=== PATIENT | female | born 1955 | race Caucasian/White ===

== ENCOUNTER 2020-03-15 10:19 | Emergency (ER) | payer MEDICARE, SELFPAY ==
--- NOTE | ~2020-03-15 | XR_ITS ---
XR chest 1V portable DATE: 03/15/2020 10:47 INDICATION: Acute chest pain, generalized. Posterior rib pain, intermittent. TECHNIQUE: Portable upright AP chest on 03/15/2020 at 1047 hours COMPARISON: 02/09/2016 2 view chest FINDINGS: Normal heart size. There is aortic unfolding. No hilar or mediastinal enlargement. No pulmonary infiltrate or consolidation, pleural effusion or pulmonary vascular congestion or pneumo thorax. Osteopenia. IMPRESSION: No active cardiopulmonary disease Reviewed, dictated and finalized at location A.
[2020-03-15 10:20] VITALS: BP 174/95; PULSE 70; RESP 20; TEMP 37.1; O2SAT 97
--- NOTE | 2020-03-15 10:30 | ECG_ITS ---
Measurements Intervals [place] Rate: 60 P: 16 LA: 159 QRS: 68 QRSD: 74 T: 44 QT: 423 QTc: 424 Interpretive Statements SINUS RHYTHM NORMAL ECG Electronically Signed On 03-15-2020 10:58:55 CDT by Oswaldo Montalvo D.O.
[2020-03-15 10:40] VITALS: PULSE 70
[2020-03-15 10:46] LABS: Basophils Absolute Auto 0.04 K/mm3 (0.00-0.10); Basophils Percent Auto 0.4 % (0.0-1.0); Eosinophils Absolute Auto 0.24 K/mm3 (0.02-0.50); Eosinophils Percent Auto 2.6 % (1.0-6.0); Hematocrit 39.4 % (35.0-42.0); Hemoglobin 13.1 g/dL (11.7-13.8); Immature Granulocyte Absolute 0.03 K/mm3 (0.00-0.00); Immature Granulocyte Percent A 0.3 % (0.0-0.0); Lymphocytes Percent Auto 16.2 % (18.0-42.0); Mean Corpuscular HGB Conc 33.2 g/dL (32.0-36.0); Mean Corpuscular Hemoglobin 29.9 pg (27.0-31.0); Mean Platelet Volume 9.6 fl (9.2-11.8); Monocytes Percent Auto 9.7 % (2.0-11.0); Neutrophils Absolute Auto 6.5 K/mm3 (1.7-7.2); Neutrophils Percent Auto 70.8 % (50.0-70.0); Platelet Count Result 327 K/mm3 (150-420); Red Blood Count 4.38 M/mm3 (4.20-5.40); White Blood Count 9.2 K/mm3 (4.8-10.8)
--- NOTE | 2020-03-15 10:58 | ED.CHESTPAIN ---
HPI - Chest Pain General Chief Complaint: Chest Pain Stated Complaint: chest pain Source: patient Mode of arrival: ambulatory Limitations: no limitations History of Present Illness HPI narrative: This is a 65-year-old female with past medical history of hypertension and hyperlipidemia, presents with some sharp substernal chest pain that started on Sunday patient states it has been constant no relation to exertion or rest, there is no shortness of breath no nausea vomiting no diaphoresis no significant past family history of heart disease, patient quit smoking back in 1979. Patient states that there is some radiation into her left arm and left jaw. complaint: chest pain Onset (ago): day(s) Timing of current episode: constant Prior episodes: No Pain location: substernal Pain radiation: left arm Severity: mild Pain scale (0-10): 4 Quality: dull Relieving factors: nothing and rest Exacerbating factors: nothing Treatment prior to arrival: none Risk Factors Coronary artery disease risk factors: none Related Data Home Medications Medication Instructions Recorded Confirmed atorvastatin 20 mg PO DAILY 03/15/20 03/15/20 lisinopril-hydrochlorothiazide 20 tablet PO DAILY 03/15/20 03/15/20 Allergies Allergy/AdvReac Type Severity Reaction Status Date / Time No Known Allergies Allergy Unverified 10/18/16 08:21 Review of Systems Review of Systems: All systems reviewed & are unremarkable except as noted in HPI and below PMFSH Past Medical History Medical History HLD (hyperlipidemia) HTN (hypertension) Family History Family History Mother Hypertension Family history of malignant neoplasm Family history of malignant neoplasm of breast in first degree relative Sibling Hypertension Social History Social History Smoking status: Former smoker Smoking end date: 11/26/82 Alcohol intake: current Exam Const: General: no acute distress and alert Orientation/consciousness: patient oriented x3 Limitations: altered mental status HENMT: Head: normal to inspection Eyes: Conjunctivae: conjunctivae normal Pupils: Equal, round and reactive pupils present Neck: Neck: normal visual inspection Chest: Chest palpation & inspection: normal inspection of the chest Resp: Effort & Inspection: normal respiratory effort Auscultation: clear to auscultation bilaterally Cardio: Rate: regular rate Rhythm: regular rhythm GI: Auscultation: normal bowel sounds : General: Yes CVA tenderness and Yes no CVA tenderness Urinary Catheter: Urinary Catheter: patent and draining Back/Spine/Pelvis: Back: no CVA tenderness Skin: General skin exam: normal color Rashes: no rashes Neuro: General: patient oriented x3, moves all extremities, no meningeal signs and no focal motor deficits Extrem: General: normal to inspection Psych: Appearance: grossly normal Mental Status: mental status grossly normal Course Vital Signs Vital signs: Vital Signs Temperature 37.1 C 03/15/20 10:20 Pulse Rate 70 03/15/20 10:20 Respiratory Rate 20 03/15/20 10:20 Blood Pressure 174/95 H 03/15/20 10:20 Pulse Oximetry 97 03/15/20 10:20 Temperature 37.1 C 03/15/20 10:20 Pulse Rate 70 03/15/20 10:40 Respiratory Rate 20 03/15/20 10:20 Blood Pressure 174/95 H 03/15/20 10:20 Pulse Oximetry 97 03/15/20 10:20 MDM - Chest Pain Lab Data Attestation: I reviewed the patient's lab results. Result diagrams: 03/15/20 10:38 03/15/20 10:38 Labs: Lab Results 03/15/20 03/15/20 03/15/20 Range/Units 10:38 10:38 10:38 WBC 9.2 (4.8-10.8) K/mm3 RBC 4.38 (4.20-5.40) M/mm3 Hgb 13.1 (11.7-13.8) g/dL Hct 39.4 (35.0-42.0) % MCV 90.0 (78.0-102.0) fL MCH 29.9 (27.0-31.0) pg MCHC 33.2 (32.0-36
--- NOTE | 2020-03-15 11:07 | PC.NURSE ---
REPORT TO OZZY MONROE
[2020-03-15 11:11] LABS: Alanine Aminotransferase 27 U/L (14-59); Albumin Level 3.8 g/dL (3.4-5.0); Alkaline Phosphatase 65 U/L (46-116); Anion Gap 15.1 mmol/L (7-16); Aspartate Amino Transferase 20 U/L (15-37); Bilirubin,Total 0.4 mg/dL (0.00-1.00); Blood Urea Nitrogen 22 mg/dL (7-18); Calcium 9.3 mg/dL (8.5-10.1); Carbon Dioxide 25 mmol/L (21-32); Chloride 106 mmol/L (98-108); Estimated CRCL calculation 47 ml/min; Estimated Glomerular Filt Rate > 60; Glucose 99 mg/dL (70-99); Osmolality Calculated 297 mOsm/kg (285-295); Potassium 4.1 mmol/L (3.5-5.1); Sodium 142 mmol/L (136-145); Total Protein 7.4 g/dL (6.4-8.2); Troponin I < 0.02 ng/mL (0.00-0.056)
[2020-03-15 11:41] VITALS: BP 146/88; PULSE 67; RESP 16; O2SAT 95
== END 2020-03-15 11:41 | disposition home or self-care (01) ==
PROVIDERS: Emergency Provider Emergency Medicine; PCP Family Medicine
DX: R07.89 Other chest pain (principal); E78.5 Hyperlipidemia, unspecified; I10 Essential (primary) hypertension; Z87.891 Personal history of nicotine dependence
CPT/HCPCS: 36415; 71045; 80053; 84443; 84484; 85025; 93005; 99284

== ENCOUNTER 2020-04-12 07:41 | Outpatient (CLI) | payer MEDICARE, SELFPAY ==
--- NOTE | ~2020-04-12 | US_ITS ---
EXAMINATION: US soft tissue abdomen DATE: 04/12/2020 11:18 INDICATION: Right abdominal swelling/lump TECHNIQUE: Multiple grayscale and Doppler ultrasound images of the right infraumbilical anterior abdo elsi wall in the region of concern were obtained. COMPARISON: None FINDINGS: There is a collection of containing peristalsing bowel in the region of concern which appears confine d to an approximately 7.8 x 7.2 x 4.0 cm hernia sac the orifice of the suspected hernia sac is not id entified likely due to the shadowing resulting from a gas within the bowel. If clinically indicated C T could be obtained to better delineate the orifice. IMPRESSION: 1. 7.8 x 7.2 x 4.0 cm peristalsing bowel containing ventral hernia at the region of concern. Reviewed, dictated and finalized at location A. IMPRESSION: 1. 7.8 x 7.2 x 4.0 cm peristalsing bowel containing ventral hernia at the regio n of concern.
== END 2020-04-12 07:42 | disposition home or self-care (01) ==
PROVIDERS: PCP Family Medicine; Visit Provider Family Medicine
DX: R19.03 Right lower quadrant abdominal swelling, mass and lump (principal); R07.9 Chest pain, unspecified
CPT/HCPCS: 76705; 78452; 93017; A9502; J2785

== ENCOUNTER 2020-05-27 09:40 | Outpatient (CLI) | payer MEDICARE, SELFPAY ==
[2020-05-27 10:10] LABS: Blood Urea Nitrogen 22 mg/dL (7-17); Calcium 9.4 mg/dL (8.4-10.2); Carbon Dioxide 29 mmol/L (22-30); Chloride 102 mmol/L (98-107); Estimated Glomerular Filt Rate 55; Glucose 106 mg/dL (65-105); Potassium 4.6 mmol/L (3.4-5.0); Sodium 138 mmol/L (137-145)
== END 2020-05-27 09:41 | disposition home or self-care (01) ==
PROVIDERS: Anesthesiology; PCP Family Medicine; Visit Provider Surgery
DX: I10 Essential (primary) hypertension (principal)
CPT/HCPCS: 36415; 80048

== ENCOUNTER 2020-06-01 01:02 | Outpatient (CLI) | payer MEDICARE, SELFPAY ==
[2020-06-01 19:16] LABS: SARS-CoV-2 RNA PCR Negative
== END 2020-06-01 01:03 | disposition home or self-care (01) ==
LOC: ANHCOVIDDT 01:03
PROVIDERS: PCP Family Medicine; Visit Provider Surgery
DX: Z01.812 Encounter for preprocedural laboratory examination (principal); Z11.59 Encounter for screening for other viral diseases
CPT/HCPCS: 87635; C9803; U0003

== ENCOUNTER 2020-06-03 01:10 | Day surgery (SDC) | payer MEDICARE, SELFPAY ==
[2020-05-26 13:44] VITALS: BMI 26.6
--- NOTE | 2020-06-01 13:02 | PM.IMHP ---
H&P: HPI History of Present Illness Chief complaint: right spegelian hernia Narrative: Bernadine Esparza is a 65 year old female Who has noticed right-sided abdominal pain for about the last 8 months. The pain is intermittent. Lying down helps to reduce the pain. She had an ultrasound of this area and was found to have a 7.8 by 7.2 x 4.0 cm peristalsing, bowel containing, ventral hernia. She was seen in the office and found to have a right-sided spigelian hernia. The pain has been increasing and the size has been increasing. She fell in March and thinks that is what made it worse. She is taken to surgery now for laparoscopic repair of this right lower quadrant abdominal hernia. Review of Systems Review of Systems: All systems reviewed & are unremarkable except as noted in HPI and below Constitutional: Constitutional: Denies headache(s) Cardiovascular: Cardiovascular: Denies chest pain, Reports irregular heart rhythm ( Occasional palpitations) and Denies dyspnea Respiratory: Respiratory: Denies cough and Reports dyspnea Gastrointestinal: Gastrointestinal: Denies bloating, Denies constipation and Denies nausea Neurologic: Denies confusion, Reports dizziness, Denies headache(s) and Reports weakness Hematologic/Lymphatic: Hematologic/Lymphatic: Reports easy bleeding and Reports easy bruising PMFSH Past Medical History Medical History Asthma History of blood clots HLD (hyperlipidemia) HTN (hypertension) Surgical History Surgical History History of appendectomy History of hysterectomy total 1976 History of laparoscopic cholecystectomy 1989 Family History Family History Mother Family history of malignant neoplasm Family history of malignant neoplasm of breast in first degree relative Sibling Hypertension Father Hypertension Social History Social History Smoking packs per day: 0.5 Smoking cigarettes per day: 10.0 Years smoked: 10 Smoking pack-years: 5.00 Smoking status: Former smoker Smoking end date: 11/26/82 Alcohol intake: current Last use: 1979 Spiritual care concerns: No Meds Home Medications and Allergies Home Medications Medication Instructions Recorded Confirmed Type atorvastatin 20 mg PO DAILY 03/15/20 05/26/20 History lisinopril-hydrochlorothiazide 20 tablet PO DAILY 03/15/20 05/26/20 History magnesium oxide 500 mg PO HS 05/26/20 05/26/20 History Allergies Allergy/AdvReac Type Severity Reaction Status Date / Time No Known Allergies Allergy Verified 05/26/20 13:29 Exam Const: General: cooperative, comfortable, no acute distress, alert and awake; No confusion Orientation/consciousness: No confusion HENMT: Head: normocephalic, atraumatic, no contusions and no scalp lesions Ears: external ears normal General nose exam: Normal external nose present Face and sinus: face symmetric and dry mucous membranes Mouth: Yes Normal oral and palatal mucosa present and Yes tongue normal Throat: posterior oropharynx normal Eyes: Conjunctivae: conjunctivae normal Sclera: sclerae normal Pupils: Equal, round and reactive pupils present EOM: EOMs intact bilaterally Neck: Neck: normal visual inspection, no lymphadenopathy, trachea midline, supple, nontender and no JVD Thyroid: abnormal thyroid Resp: Effort & Inspection: normal respiratory effort Auscultation: clear to auscultation bilaterally Cardio: Rate: regular rate Rhythm: regular rhythm GI: Inspection: normal to inspection, non-distended and scar GI Palp: Yes Soft to palpation, Yes Tenderness to palpation present (GI), No Hepatomegaly present, No Splenomegaly present and Yes Hernia present ( right lower quadrant reducible bulge, lateral border rectus, tender) Auscultation: normal bowel sounds and normoact
[2020-06-03] VITALS (8 sets, daily range): BP systolic 118–146; BP diastolic 65–93; PULSE 51–96; RESP 12–18; TEMP 36.4; O2SAT 92–100
[2020-06-03] MEDS: LACTATED RINGERS 1,000 ML 30 ML IV CONT ×2 (08:20→11:52)
--- NOTE | 2020-06-03 08:22 | WPDHPUPDATE1 ---
History and Physical Update Update Date/Time: 06/03/20 08:22 History and Physical has been reviewed, including an updated exam of the patient. There are NO changes in the patient's condition. Risks, benefits, and alternatives have been discussed and questions answered. Patient agrees to proceed with procedure.
[2020-06-03] MEDS: ACETAMINOPHEN 500 MG TABLET 1000 MG PO (08:50)
[2020-06-03] MEDS: KETOROLAC 15 MG/ML VIAL (*BKC) IV PUSH (08:50)
--- NOTE | 2020-06-03 08:53 | WPDANESEPPF ---
Anes - Initial Pre Proc Eval Procedure: Operation Date: 06/03/20 09:30 Proposed Procedures p Laparoscopic Repair Right Spigelian Hernia - Ronald Ralph MD Date/Time: 06/03/20 08:53 Surgeon: Ronald Ralph MD Pre Op Diagnosis: right spegelian hernia Patient Data Age: 65 Gender: F Height: 5 ft 5 in Weight: 72.7 kg Allergies Allergy/AdvReac Type Severity Reaction Status Date / Time No Known Allergies Allergy Verified 05/26/20 13:29 Home Medications Medication Instructions Recorded Confirmed Type atorvastatin 20 mg PO DAILY 03/15/20 06/03/20 History lisinopril-hydrochlorothiazide 20 tablet PO DAILY 03/15/20 06/03/20 History magnesium oxide 500 mg PO HS 05/26/20 06/03/20 History Patient hx anesthesia problems: none Family hx anesthesia problems: none PMFSH Past Medical History Medical History Asthma History of blood clots HLD (hyperlipidemia) HTN (hypertension) Surgical History Surgical History History of appendectomy History of hysterectomy total 1976 History of laparoscopic cholecystectomy 1989 Family History Family History Mother Family history of malignant neoplasm Family history of malignant neoplasm of breast in first degree relative Sibling Hypertension Father Hypertension Social History Social History Smoking packs per day: 0.5 Smoking cigarettes per day: 10.0 Years smoked: 10 Smoking pack-years: 5.00 Smoking status: Former smoker Smoking end date: 11/26/82 Alcohol intake: current Last use: 1979 Living arrangements: with family Spiritual care concerns: No Anes - Eval Final PreProcedure Day of Procedure 06/03/20 08:53 Patient weight: overweight Heart: regular rate and rhythm Lungs: clear to auscultation Airway: Mallampati scale class II Neurological: alert and oriented Last oral intake: >/= 8 hours ASA classification: II Emergent: no Anesthetic plan: proceed Anesthesia type and monitoring: general ETT and standard monitoring Informed Consent: The patient's anesthetic plan and its attendant risks and benefits were discussed with the patient/family/POA. Questions were solicited and answers provided to the satisfaction of the patient/family/POA.
[2020-06-03] MEDS: ceFAZolin 2 GM/D5W 50 ML 2 GM/50 ML BAG IVPB (09:52)
[2020-06-03] MEDS: BUPIVACAINE/EPINEPHRINE 0.5% 30 ML VIAL 8 ML INFILTRATE (10:40)
--- NOTE | 2020-06-03 12:13 | SUR.PHASEI ---
Patient just dribbled a little urine in PACU and needs to urinate still before going home.
--- NOTE | 2020-06-03 12:18 | PM.PROC ---
Procedure Note - Detailed Date of procedure: 06/03/20 Pre-op diagnosis: right spigelian hernia Right spigelian hernia Post-op diagnosis: other (Right inguinal hernia, indirect) Procedure performed: Diagnostic laparoscopy, open repair right inguinal hernia Description of procedure: Brief history-the patient is a 65-year-old woman who for 8 months has had a bulge in the right lower abdomen. She fell in March and, after that, she noticed the bulge was larger and was more frequently painful. She had an ultrasound which described a ventral hernia below the umbilicus at the lateral margin of the rectus muscle on the right side. Clinical exam also showed a right lower quadrant abdominal hernia. This was felt to be most likely a right spigelian hernia. She is taken to surgery now for laparoscopic repair. Findings-patient's hernia was in the inguinal area although it did seem to extend laterally farther than 1 would normally expect for an inguinal hernia. It was repaired as a large indirect hernia. Procedure-the patient was taken to surgery and induced into general anesthesia. The entire abdomen and both groins were prepped and draped. A left sub costal trocar was placed. Local anesthesia of 0.5% Marcaine with epinephrine was infiltrated before the incision was made. This was an applied Medical optical trocar. Once we were in the abdomen, insufflation occurred. I reviewed the area of the hernia. It was evident that this was not a ventral hernia but was more in the inguinal region consistent with an right inguinal hernia. We stopped insufflation and changed our instruments to those for a right inguinal hernia repair. The prep and drape was already adequate for this surgery. The proposed incision was marked on the right groin area. Local anesthetic was changed to 0.5% Marcaine with Exparel. The proposed incision was infiltrated with local anesthetic. Incision was made and deepened through the subcutaneous. Crossing veins were cauterized and divided. We dissected down to the external oblique aponeurosis. The external ring was found. The external oblique was then exposed in the usual fashion. Additional local was infiltrated deep to the aponeurosis in the area of the inguinal canal. The aponeurosis was opened laterally and extended medially through the external ring. The leaves of the aponeurosis were freed from the underlying inguinal canal contents. The round ligament was dissected at the pubic tubercle and encircled with a [place] drain. I mobilized the round ligament from the inguinal canal and from the hernia sac. The hernia actually was not associated with the round ligament but was predominantly lateral to the inferior epigastric vessels. Some of the defect was medial to the inferior epigastric vessels and some of it extended laterally beyond the internal ring. This required extending the skin incision laterally as well as extending the incision in the external oblique aponeurosis laterally. The hernia was not clearly an inguinal hernia but was some combination of inguinal and ventral hernia. It was repaired most closely to an inguinal hernia. I opened the transversalis fascia medially and checked for a femoral hernia. There was none. I then proceeded to repair this hernia in Bassini fashion. 0 Ethibond suture were used and we started medially suturing the pubic tubercle to the transversalis fascia with interrupted sutures. The repair proceeded from medial to lateral suturing transversalis fascia to the reflection of the inguinal ligament. I felt the repair would be more secure by removing the round ligament. I divided the round ligament 1st near the pubic tubercle. I then divided it near the internal ring. The ileoinguinal nerve was divided here as well. This allowed me to then dissect out a large hernia sac that was both at and lateral to the internal ring. Once dissected, the hernia sac was dunked into the retroperitoneum. I then continued the ai
== END 2020-06-03 14:00 | disposition home or self-care (01) ==
PROVIDERS: PCP Family Medicine; Visit Provider Surgery
PROC: (CPT 49505; principal; 2020-06-03 09:30)
DX: K40.90 Unilateral inguinal hernia, without obstruction or gangrene, not specified as recurrent (principal); J45.909 Unspecified asthma, uncomplicated; I10 Essential (primary) hypertension; E78.5 Hyperlipidemia, unspecified; Z87.891 Personal history of nicotine dependence
CPT/HCPCS: 49505; A9270; C9290; J0330; J0690; J1100; J1170; J1885; J2250; J2405; J2704; J3010; J7120

== ENCOUNTER 2020-11-16 10:07 | Outpatient (CLI) | payer MEDICARE, SELFPAY ==
--- NOTE | ~2020-11-16 | US_ITS ---
EXAMINATION: US venous doppler [facility] DATE: 11/16/2020 11:50 INDICATION: Right calf pain. TECHNIQUE: Grayscale ultrasound images without and with compression and Doppler ultrasound images of the bilateral lower extremity veins were obtained. COMPARISON: None. FINDINGS: The visualized portions of right common femoral vein, profunda (deep) femoral vein, femoral vein, pop liteal vein, peroneal veins, posterior tibial veins, and greater saphenous vein outflow are patent. The visualized portions of left common femoral vein, profunda femoral vein, femoral vein, popliteal v ein, peroneal veins, posterior tibial veins, and greater saphenous vein outflow are patent. IMPRESSION: 1. No deep venous thrombosis. Reviewed, dictated and finalized at location A. [employer]
[2020-11-16 10:25] LABS: Basophils Absolute Auto 0.04 K/mm3 (0.00-0.10); Basophils Percent Auto 0.6 % (0.0-1.0); Eosinophils Absolute Auto 0.17 K/mm3 (0.02-0.50); Eosinophils Percent Auto 2.5 % (1.0-6.0); Hemoglobin 13.3 g/dL (11.7-13.8); Immature Granulocyte Absolute 0.02 K/mm3 (0.00-0.00); Immature Granulocyte Percent A 0.3 % (0.0-0.0); Lymphocytes Absolute Auto 1.44 K/mm3 (1.10-4.50); Lymphocytes Percent Auto 21.1 % (18.0-42.0); Mean Corpuscular HGB Conc 32.4 g/dL (32.0-36.0); Mean Corpuscular Hemoglobin 29.6 pg (27.0-31.0); Mean Corpuscular Volume 91.1 fL (78.0-102.0); Mean Platelet Volume 9.5 fl (9.2-11.8); Monocytes Absolute Auto 0.52 K/mm3 (0.10-0.90); Monocytes Percent Auto 7.6 % (2.0-11.0); Neutrophils Absolute Auto 4.6 K/mm3 (1.7-7.2); Neutrophils Percent Auto 67.9 % (50.0-70.0); Platelet Count Result 356 K/mm3 (150-420); Red Cell Distribution Width 12.6 % (11.6-14.4); White Blood Count 6.8 K/mm3 (4.8-10.8)
[2020-11-16 10:27] LABS: Add Urine Microscopic? NO; Appearance Urine Clear (Clear); Bilirubin Urine Negative (Negative); Blood Urine Negative (Negative); Color Urine Yellow (Yellow); Glucose Urine UA Negative (Negative); Ketones Urine Negative (Negative); Leukocyte Esterase Ur Negative (Negative); Nitrate Urine Negative (Negative); Protein Urine Negative (Negative); Urobilinogen Urine 0.2 mg/dL (0.2-1.0); pH Urine 5.5 (5.0-8.0)
[2020-11-16 10:38] LABS: Creatinine Urine 90.32 mg/dL (40-278); MALB Creatinine Ratio 14.3 mg/g (0-30); Microalbumin Urine Random < 13.0 mg/L
[2020-11-16 10:44] LABS: D Dimer 0.85 mg/L (0.19-0.50)
[2020-11-16 10:49] LABS: Alanine Aminotransferase 24 U/L (14-59); Albumin Level 3.9 g/dL (3.4-5.0); Alkaline Phosphatase 75 U/L (46-116); Anion Gap 9 mmol/L (8-16); Aspartate Amino Transferase 16 U/L (15-37); Bilirubin Direct 0.1 mg/dL (0-0.2); Bilirubin,Total 0.4 mg/dL (0.00-1.00); Blood Urea Nitrogen 17 mg/dL (7-18); Calcium 9.3 mg/dL (8.5-10.1); Carbon Dioxide 26 mmol/L (21-32); Chloride 103 mmol/L (98-108); Creatine Kinase 75 U/L (26-192); Estimated Glomerular Filt Rate 49; Glucose 95 mg/dL (70-99); Osmolality Calculated 287 mOsm/kg (285-295); Potassium 4.1 mmol/L (3.5-5.1); Sodium 138 mmol/L (136-145); Thyroid Stimulating Hormone 1.58 uIU/mL (0.36-3.74)
[2020-12-01 10:51] LABS: Vitamin D 25 Hydroxy 74
== END 2020-11-16 10:08 | disposition home or self-care (01) ==
PROVIDERS: PCP Family Medicine; Visit Provider Family Medicine
DX: M79.605 Pain in left leg (principal); M79.604 Pain in right leg; R53.83 Other fatigue; R94.8 Abnormal results of function studies of other organs and systems; E78.2 Mixed hyperlipidemia; I10 Essential (primary) hypertension; E55.9 Vitamin D deficiency, unspecified
CPT/HCPCS: 36415; 80048; 80076; 81003; 82043; 82306; 82550; 84439; 84443; 85025; 85380; 93970

== ENCOUNTER 2020-12-20 16:08 | Outpatient (CLI) | payer MEDICARE, SELFPAY ==
[2020-12-20 17:06] LABS: SARS-CoV-2 Ag Negative (Negative)
[2020-12-22 14:05] LABS: SARS-CoV-2 RNA PCR Positive
== END 2020-12-20 16:09 | disposition home or self-care (01) ==
LOC: CHSLAB 16:12
PROVIDERS: PCP Family Medicine; Visit Provider Family Medicine
DX: U07.1 COVID-19 (principal)
CPT/HCPCS: 87426; C9803; U0003; U0005

== ENCOUNTER 2022-08-09 12:46 | Outpatient (CLI) | payer MEDICARE, SELFPAY ==
--- NOTE | ~2022-08-09 | XR_ITS ---
EXAM: XR lumbar spine 2-3V DATE: 08/09/2022 13:28 HISTORY: fell 1mo ago, sacrum/coccyx pain and radiates into both legs . COMPARISON: 11/21/2013. FINDINGS: Mild lumbar scoliosis. Cholecystectomy clips. Midline pelvic clip. Pelvic phleboliths. 5 no nrib-bearing lumbar-type vertebral bodies. Pedicles intact. Normal vertebral body alignment. Vertebra l body heights preserved. Multilevel mild and moderate disc space narrowing at all lumbar levels, wit h marginal osteophytes. Vacuum disc phenomenon at L3-4 and L4-5. Multilevel facet hypertrophy and scl erosis. No fracture or dislocation. Aortic calcification without evident aneurysm. IMPRESSION: No acute fracture or traumatic malalignment detected in the lumbar spine. Degenerative di sc disease at all lumbar levels, severe at L3-4 and L4-5. Multilevel facet arthropathy. Reviewed, dictated and finalized at location K. IMPRESSION: No acute fracture or traumatic malalignment detected in the lumbar spine. Degenerative disc disease at all lumbar levels, severe at L3-4 and L4-5. Multilevel facet arthropathy.
--- NOTE | ~2022-08-09 | XR_ITS ---
EXAMINATION: XR sacrum coccyx min 2V INDICATION: Pain after fall TECHNIQUE: Three views of the sacrum and coccyx are obtained. COMPARISON: None available FINDINGS: Bone alignment is normal. There is no fracture. There is moderate lumbar spondylosis. Phleb oliths are noted in the pelvis. There is mild osteitis pubis. IMPRESSION: 1. No acute osseous abnormality. Reviewed, dictated and finalized at location B.
== END 2022-08-09 12:47 | disposition home or self-care (01) ==
LOC: CHSIMG 12:52
PROVIDERS: PCP Family Medicine; Visit Provider Family Medicine
DX: M53.3 Sacrococcygeal disorders, not elsewhere classified (principal)
CPT/HCPCS: 72100; 72220

== ENCOUNTER 2022-09-11 11:57 | Outpatient (CLI) | payer MEDICARE, SELFPAY ==
--- NOTE | ~2022-09-11 | MM_ITS ---
EXAMINATION: MM screening [facility] BI w beatriz HISTORY: Screening TECHNIQUE: Craniocaudal and mediolateral oblique 3-D tomosynthesis images were obtained and synthetic 2-D images were generated. CAD analysis was submitted and interpreted. COMPARISON: Comparison to multiple prior studies sequentially, with oldest reviewed study dated 03/2017. BREAST PARENCHYMAL COMPOSITION: There are scattered areas of fibroglandular density. FINDINGS: There is no evidence of suspicious mass, calcification, or architectural distortion to sugg est malignancy in either breast. There has been no suspicious interval change. IMPRESSION: 1. No mammographic evidence of malignancy. 2. Recommend routine screening mammography in one year. BI-RADS Category 1: Negative Reviewed, dictated and finalized at location A.
== END 2022-09-11 11:58 | disposition home or self-care (01) ==
PROVIDERS: PCP Family Medicine; Visit Provider Family Medicine
DX: Z12.31 Encounter for screening mammogram for malignant neoplasm of breast (principal)
CPT/HCPCS: 77063; 77067

== ENCOUNTER 2023-04-17 09:40 | Emergency (ER) | payer MEDICARE, SELFPAY ==
[2023-04-17 09:50] VITALS: BP 142/88; PULSE 67; RESP 16; TEMP 36.6; O2SAT 98
--- NOTE | 2023-04-17 09:55 | ED.EYEPROB ---
HPI - Eye Problem General Chief complaint: Eye Problems Stated complaint: Put wax remover in right eye Source: patient and RN notes reviewed Limitations: no limitations History of Present Illness HPI Narrative: Patient is a 68-year-old female who accidentally administered earwax removal drops into her right eye around 6:30 am this morning. Patient states that she immediately flushed the eye after administration of the drop. States that she is experiencing some burning to her right eye, but denies visual disturbance. She presents with mild injection to the right eye with no drainage or tearing. Her visual acuity is 20/20 in the right eye. Related Data Home Medications Medication Instructions Recorded Confirmed lisinopril 20 20 tablet PO DAILY 03/15/20 04/17/23 mg-hydrochlorothiazide 12.5 mg tablet Allergies Allergy/AdvReac Type Severity Reaction Status Date / Time No Known Allergies Allergy Verified 04/17/23 09:50 Review of Systems Review of Systems: CONSTITUTIONAL: Denies fever, chills, or sweats. EYES: Denies visual changes or discharge. Reports right eye burning with mild redness. ENT: Denies otalgia and sore throat CARDIOVASCULAR: Denies chest pain, palpitations, or edema. RESPIRATORY: Denies cough or dyspnea. GASTROINTESTINAL: Denies abdominal pain, nausea, vomiting, or diarrhea. GENITOURINARY: Denies dysuria or hematuria. SKIN: Denies rash or itching. MUSCULOSKELETAL: Denies back pain, joint pain, or myalgia. NEUROLOGIC: Denies headache, numbness, or weakness. Pertinent positives per HPI. PMF Past Medical History Medical History (Updated 04/17/23 @ 10:07 by Lashonda Willard APRN) Asthma History of blood clots HLD (hyperlipidemia) HTN (hypertension) Surgical History Surgical History History of appendectomy History of hysterectomy total 1976 History of laparoscopic cholecystectomy 1989 Family History Family History Mother Family history of malignant neoplasm Family history of malignant neoplasm of breast in first degree relative Sibling Hypertension Father Hypertension Social History Social History Smoking packs per day: 0.5 Smoking cigarettes per day: 10.0 Years smoked: 10 Smoking pack-years: 5.00 Smoking status: Former smoker Smoking end date: 11/26/82 Alcohol intake: current Last use: 1979 Living arrangements: with family Occupation/Education: retired Spiritual care concerns: No Comments At the time of my signature, I reviewed and agree with the nursing past medical, surgical, social, and family history. There is no relevant family history pertinent to the patient complaint. Exam Narrative: GENERAL: This is a well-nourished, well-developed patient, in no apparent distress. HEAD: normocephalic, atraumatic. EYES: PERRL. Sclera clear/white in left. Mild erythema to the right. Vision is grossly intact. EARS: External ears normal, auditory canals clear and without drainage, TMs normal without perforation. Hearing grossly intact. NOSE: External nose normal with no obvious nasal discharge, nares without redness, no rhinorrhea. THROAT: Mucous membranes moist, posterior pharynx clear. NECK: Neck supple, non-tender without lymphadenopathy, masses or thyromegaly. CARDIOVASCULAR: Regular rate and rhythm without murmurs, gallops, or rubs. RESPIRATORY: Clear to auscultation. Breath sounds equal bilaterally. No wheezes, rales, or rhonchi. GASTROINTESTINAL: Abdomen soft, non-tender, nondistended. Bowel sounds are active. No hepato-splenomegaly, or palpable masses. No guarding. SKIN: warm, intact with no suspicious lesions or rash, good texture and turgor. NEURO: awake, alert, and oriented to person, place and time. There were no obvious focal neurologic abnormalities. EXTREMITIES: No clubbing
== END 2023-04-17 10:14 | disposition home or self-care (01) ==
PROVIDERS: Emergency Provider Nurse Practitioner; PCP Family Medicine
DX: T26.91XA Corrosion of right eye and adnexa, part unspecified, initial encounter (principal); Z77.098 Contact with and (suspected) exposure to other hazardous, chiefly nonmedicinal, chemicals; J45.909 Unspecified asthma, uncomplicated; E78.5 Hyperlipidemia, unspecified; I10 Essential (primary) hypertension
CPT/HCPCS: 99213; G0463

== ENCOUNTER 2024-02-06 08:23 | Outpatient (CLI) | payer MEDICARE, SELFPAY ==
--- NOTE | ~2024-02-06 | MM_ITS ---
EXAMINATION: MM screening [facility] BI w beatriz HISTORY: Screening mammogram TECHNIQUE: Craniocaudal and mediolateral oblique 3-D tomosynthesis images were obtained and synthetic 2-D images were generated. CAD analysis was submitted and interpreted. COMPARISON: 09/11/2022, 09/15/2019 bilateral screening mammogram examinations BREAST PARENCHYMAL COMPOSITION: There are scattered areas of fibroglandular density. FINDINGS: There is no evidence of suspicious mass, calcification, or architectural distortion to sugg est malignancy in either breast. There has been no suspicious interval change. IMPRESSION: 1. No mammographic evidence of malignancy. 2. Recommend routine screening mammography in one year. BI-RADS Category 1: Negative Reviewed, dictated and finalized at location A.
== END 2024-02-06 08:24 | disposition home or self-care (01) ==
LOC: CHSIMG 08:30
PROVIDERS: PCP Family Medicine; Visit Provider Family Medicine
DX: Z12.31 Encounter for screening mammogram for malignant neoplasm of breast (principal)
CPT/HCPCS: 77063; 77067

== ENCOUNTER 2024-02-18 13:17 | Emergency (ER) | payer MEDICARE, SELFPAY ==
[2024-02-18 13:30] VITALS: BP 136/86; PULSE 65; RESP 16; TEMP 37.3; O2SAT 99
--- NOTE | 2024-02-18 13:49 | ED.SKABFB ---
HPI - Skin/Abscess/Foreign Bdy General Chief complaint: Skin/Abscess/Foreign Body Stated complaint: Rash Time Seen by Provider: 02/18/24 13:49 Source: patient Mode of arrival: ambulatory Limitations: no limitations History of Present Illness HPI narrative: 69-year-old female presented for complaint of a poison paul to the right forearm. Started itching 2 days ago after cleaning up brush and pulling weeds. She has kept the site wrapped with gauze and is applying hydrocortisone cream. Denies any other locations of rash. Denies lip, tongue, or throat swelling, shortness of breath or wheezing. Denies changes to soap, detergent, lotion, or any other exposures. No one else in the house or any contacts with similar symptoms. Related Data Home Medications Medication Instructions Recorded Confirmed lisinopril 20 20 tablet PO DAILY 03/15/20 02/18/24 mg-hydrochlorothiazide 12.5 mg tablet Allergies Allergy/AdvReac Type Severity Reaction Status Date / Time No Known Allergies Allergy Verified 04/17/23 09:50 Review of Systems Review of Systems: CONSTITUTIONAL: Denies body aches, fever, chills, or sweats. EYES: Denies visual changes, redness, or discharge. ENT: Denies rhinorrhea, congestion CARDIOVASCULAR: Denies chest pain, palpitations, or edema. RESPIRATORY: Denies cough or dyspnea. GASTROINTESTINAL: Denies abdominal pain, nausea, vomiting, or diarrhea. SKIN: reports rash MUSCULOSKELETAL: Denies back pain, joint pain, or myalgia. NEUROLOGIC: Denies headache, numbness, tingling, or weakness. [facility] Past Medical History Medical History Asthma History of blood clots HLD (hyperlipidemia) HTN (hypertension) Surgical History Surgical History History of appendectomy History of hysterectomy total 1976 History of laparoscopic cholecystectomy 1989 Family History Family History Mother Family history of malignant neoplasm Family history of malignant neoplasm of breast in first degree relative Sibling Hypertension Father Hypertension Social History Social History Smoking packs per day: 0.5 Smoking cigarettes per day: 10.0 Years smoked: 10 Smoking pack-years: 5.00 Smoking status: Former smoker Smoking end date: 11/26/82 Alcohol intake: current Last use: 1979 Living arrangements: with family Occupation/Education: retired Spiritual care concerns: No Comments At time of signature, I have reviewed and agree with nursing past medical, surgical, social and family history unless otherwise noted. Please see nursing chart for further information. There is no relevant family history pertinent to the presenting complaint Exam Narrative: GENERAL: Well-appearing HEAD: Normocephalic, atraumatic. EYES: conjunctivae clear, and EOMI. ENT: Mucous membranes moist. Oropharynx without edema, erythema or lesions. NECK: Supple. No lymphadenopathy CHEST: Clear to auscultation. HEART: Regular rate and rhythm. SKIN: Warm, dry. Right forearm erythema and vesicles c/w contact dermatitis. No oozing or induration. Nontender. NEURO: Alert and oriented x3. Course Course Emergency Course: Patient is aware of diagnosis, understands and agrees to treatment plan. Anticipatory guidance given. Patient agrees to follow-up as directed and is aware of reasons to seek care at the emergency department. Portions of this record may have been created with voice recognition software Level of Care: Express Care Visit Vital Signs Vital signs: Vital Signs Temperature 99.1 F 02/18/24 13:30 Pulse Rate 65 02/18/24 13:30 Respiratory Rate 16 02/18/24 13:30 Blood Pressure 136/86 02/18/24 13:30 Pulse Oximetry 99 02/18/24 13:30 Oxygen Delivery Room Air 02/18/24 13:3
== END 2024-02-18 14:01 | disposition home or self-care (01) ==
PROVIDERS: Emergency Provider Nurse Practitioner Family; PCP Family Medicine
DX: L25.9 Unspecified contact dermatitis, unspecified cause (principal); Z87.891 Personal history of nicotine dependence; J45.909 Unspecified asthma, uncomplicated; E78.5 Hyperlipidemia, unspecified; I10 Essential (primary) hypertension; D75.9 Disease of blood and blood-forming organs, unspecified
CPT/HCPCS: 99213; G0463

== ENCOUNTER 2024-11-12 12:46 | Outpatient (CLI) | payer MEDICARE, SELFPAY ==
--- NOTE | ~2024-11-12 | DEXA_ITS ---
Bone Density Report Name: TRINY CHOWDHURY Age: 69 Sex: Female Ethnicity: White Date of : 1955 Indication: postmenopausal; screening for osteoporosis; height loss; hysterectomy; Referring Provider: James Steel Study: Bone densitometry was performed. Exam Date: November 12, 2024 Accession number: [id number] Bone Density: Region BMD T-score Z-score Classification AP Spine(L1, L2, L3) 1.024 0.1 2.2 Normal Femoral Neck (Left) 0.549 -2.7 -0.8 Osteoporosis Total Hip (Left) 0.710 -1.9 -0.3 Osteopenia Femoral Neck (Right) 0.550 -2.7 -0.8 Osteoporosis Total Hip (Right) 0.759 -1.5 0.1 Osteopenia Femoral Neck Mean 0.549 -2.7 -0.8 Osteoporosis Total Hip Mean 0.735 -1.7 -0.1 Osteopenia World Health Organization criteria for BMD impression classify patients as: Normal (T-score at or above -1.0), Osteopenia (T-score between -1.0 and -2.5), or Osteoporosis (T-score at or below -2.5). 10-year Fracture Risk: FRAX not reported because: Some T-score for Spine Total or Hip Total or Femoral Neck at or below -2.5 Clinical Information Provided by Patient: Has the following medical conditions: Hysterectomy Patient maximum height was 66 Menopause Age: 48 No regular weight bearing exercise Drinks caffeinated beverages Onset of menses at age 16 Number of children 0 Impression: The patient has osteoporosis, based on the Left Femoral Neck T-score. Discussion: INCREASED RISK OF FRACTURE. BONE DENSITY IS UNDESIRABLY LOW AT ONE OR MORE SKELETAL SITES, CONSISTENT WITH POSTMENOPAUSAL OSTEOPOROSIS. This patient's lowest T-score meets the World Health Organization's (WHO) criteria for osteoporosis at one or more sites (T-score -2.5 or below). In untreated patients, the risk of osteoporotic fracture increases approximately two-fold for each 1.0 SD decrease in T-score. Low bone density is not the only risk factor for fracture; also consider factors such as patient's age, frailty or poor health, risk of falling, risk of injury, previous osteoporotic fracture, family history of osteoporosis, cigarette smoking, low body weight, etc. Not everyone with low bone mineral density has osteoporosis; osteomalacia and other metabolic bone disorders should also be considered. Patients who have osteoporosis should be evaluated for specific diseases and conditions (secondary causes) that may cause or contribute to bone loss. The [place] [employer]ocrinologists (AACE) and National Osteoporosis Foundation (NOF) recommend pharmacologic intervention for all postmenopausal women whose T-score is in this range. The patient should follow a healthful lifestyle (good nutrition with adequate calcium and vitamin D, and appropriate weight-bearing exercise). Follow-Up: Consider a repeat BMD and Vertebral Fracture Assessment (VFA) exam in 2 years or sooner if medically necessary, to reassess this patient's status. Reported by: JORGITO on 11/12/2024 1:06:00 PM. Reviewed, dictated and finalized at location A.
== END 2024-11-12 12:47 | disposition home or self-care (01) ==
LOC: CHSIMG 12:48
PROVIDERS: PCP Family Medicine; Visit Provider Family Medicine
DX: M81.0 Age-related osteoporosis without current pathological fracture (principal); M85.89 Other specified disorders of bone density and structure, multiple sites; Z13.820 Encounter for screening for osteoporosis
CPT/HCPCS: 77080

== ENCOUNTER 2025-09-26 10:55 | Emergency (ER) | payer MEDICARE, SELFPAY ==
--- NOTE | ~2025-09-26 | XR_ITS ---
Examination: XR hand RT min 3V Clinical History: Right hand pain x1 week Comparison: None Technique: 3 views right hand Findings/impression: 1. No fracture or dislocation right hand. 2. Degenerative changes first MTP joint, with digital palmar subluxation. Reviewed, dictated and finalized at location R.
[2025-09-26 10:55] VITALS: BP 151/85; PULSE 70; RESP 18; TEMP 36.7; O2SAT 97
--- NOTE | 2025-09-26 12:51 | ED_ITS ---
HPI - Extremity Injury (Upper) General Chief Complaint: Extremity Injury, Upper Stated Complaint: hand pain Time Seen by Provider: 09/26/25 10:55 Source: patient Mode of arrival: ambulatory Limitations: no limitations History of Present Illness HPI narrative: This is a 70-year-old female with no significant past medical history presents with right hand pain with some tenderness with movement with some numbness with no known injury has been shoveling last couple of days and noticed her right hand has intensified and pain. No significant past medical history no fever chills has a brisk radial pulse on the right. complaint: injury to: right Onset (ago): day(s) Other Extremity Injury: Right: hand (Tenderness) Severity: mild Related Data Home Medications ?Medication ?Instructions ?Recorded ?Confirmed ?Last Taken ?Type lisinopril 20 20 tablet PO DAILY 03/15/20 09/26/25 09/25/25 History mg-hydrochlorothiazide 12.5 mg tablet ibandronate 150 mg tablet 150 mg PO MONTHLY 09/26/25 1 11/26/24 Unknown History Allergies Allergy/AdvReac Type Severity Reaction Status Date / Time No Known Allergies Allergy Verified 09/26/25 11:05 Review of Systems Review of Systems: All systems reviewed & are unremarkable except as noted in HPI and below PMFSH Past Medical History Medical History Sesamoiditis of left foot Asthma History of blood clots HLD (hyperlipidemia) HTN (hypertension) Surgical History Surgical History History of appendectomy History of laparoscopic cholecystectomy 1989 History of hysterectomy total 1976 Family History Family History Mother Family history of malignant neoplasm Family history of malignant neoplasm of breast in first degree relative Sibling Hypertension Father Hypertension Social History Social History Smoking packs per day: 0.5 Smoking cigarettes per day: 10.0 Years smoked: 10 Smoking pack-years: 5.00 Smoking status: Former smoker Smoking end date: 11/26/82 Alcohol intake: current Last use: 1979 Living arrangements: with family Occupation/Education: retired Gender identity (if verbalized by the patient): Female Spiritual care concerns: No Exam Const: General: healthy appearing Nutritional Appearance: well nourished Orientation/consciousness: patient oriented x3 Chest: Chest palpation & inspection: normal inspection of the chest Resp: Effort & Inspection: normal respiratory effort Auscultation: clear to auscultation bilaterally Cardio: Rate: regular rate Rhythm: regular rhythm GI: GI Palp: Yes Soft to palpation Auscultation: normal bowel sounds Skin: Wounds: no wounds Extrem: Other: Right hand tender with palpation and movement otherwise no swelling has a good radial pulse with a negative Phalen negative to tineal test Course Course Emergency Course: Medical decision making narrative: The patient was evaluated by myself in the emergency department. History obtained from the patient was an independent disoriented physical exam performed and witnessed by the nurse. X-ray performed shows no acute fractures, patient pain level is well controlled and declined any medication at this time. Repeat assessment: Doing well on repeat exam with no acute distress Symptoms have been stable since arrival to the ED Repeat vital stable Patient agrees with discussion after medical decision making and agrees with discharge. All questions answered to the patient's satisfaction Advised follow-up with primary in 3 to 5 days. Vital Signs Vital signs: Vital Signs Temperature 36.7 C 09/26/25 10:55 Pulse Rate 70 09/26/25 10:55 Respiratory Rate 18 09/26/25 10:55 Blood Pressure 151/85 H 09/26/25 10:55 Pulse Oximetry 97 09/26/25 10:55 Oxygen Delivery Room Air 09/26/25 10:55 Temperature 36.7 C 09/26/25 10:55 Pulse Rate 70 09/26/25 10:55 Respiratory Rate 18 09/26/25 10:55 Blood Pressure 151/85 H 09/26/25 10:55 Pulse Oximetry 97 09/26/25 10:55 Oxygen Delivery Room Air 09/26/25 10:55 Critical Care Time Critical Care Time Critical Care Time: No Discharge Plan Discharge Clinical Impression: Osteoarthritis Qualifiers: Osteoarthritis location: wrist Osteoarthritis type: unspecified Laterality: right Qualified Code(s): 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 Patient Language: [place]olan Prescriptions: No Action lisinopril-hydrochlorothiazide 20-12.5 mg tablet 20 tablet PO DAILY ibandronate 150 mg tablet 150 mg PO MONTHLY Follow-up/Referrals: James Steel MD [Primary Care Provider, Internal Medicine] Time of Disposition: 12:57
[2025-09-26 12:57] VITALS: BP 159/93; PULSE 68; RESP 16; O2SAT 96
== END 2025-09-26 13:05 | disposition home or self-care (01) ==
PROVIDERS: Emergency Provider Emergency Medicine; PCP Family Medicine
DX: M19.031 Primary osteoarthritis, right wrist (principal); E78.5 Hyperlipidemia, unspecified; I10 Essential (primary) hypertension; Z87.891 Personal history of nicotine dependence
CPT/HCPCS: 73130; 99283